=== PATIENT | male | born 1980 | race Caucasian/White ===

== ENCOUNTER 2022-10-04 13:35 | Emergency (ER) | payer OTHER ==
[~2022-10-04] VITALS: Ht 182.9 cm; Wt 106.1 kg
[2022-10-04 13:46] VITALS: BP 111/76
--- NOTE | 2022-10-04 15:30 | NUR ---
Patient discharged with v/s stable. Written and verbal after care instructions given and explained. Patient verbalized understanding. Ambulatory with in custody. All questions addressed prior to discharge. Advised to follow up with PMD.
== END 2022-10-04 15:30 ==
LOC: MED 13:35
DX: F43.0 Acute stress reaction (principal)
CPT/HCPCS: 71045; 99283